=== PATIENT | female | born 1985 | race African-American/Black ===

== ENCOUNTER 2021-05-03 17:29 | Emergency (ER) | payer OTHER ==
[~2021-05-03] VITALS: Ht 162.6 cm; Wt 68.0 kg
[~2021-05-03 17:29] MED LIST: ALBUTEROL INHAL17 GM IH; AMITRIPTYLINE H10 M1 PO; ATIVAN0.5 MG; BENTYL20 MG PO; NOHOMEMEDICATIONS; NORCO 5-325 TA1 EACH PO; PHENADOZ25 MG RC; PHENERGAN 25 MG25 M1 PO; PHENERGAN 25 MG25 MG PO; PHENERGAN25 MG RE; PHENERGAN50 MG RC; PREDNISONE 2.52.5 M1 PO; PROTONIX40 M2; PROTONIX40 M2 PO; REMERON15 MG; SYMBICORT160 MCG/4. INH; VENTOLIN HFA 1818 GM INH; ZOFRAN ODT4 MG PO; ZOFRAN4 MG PO
[2021-05-03 18:08] LABS: URINE BILIRUBIN 1+ (Negative); URINE BLOOD TRACE (Negative); URINE CLARITY CLEAR; URINE COLOR YELLOW; URINE GLUCOSE-RANDOM* NEGATIVE (Negative); URINE KETONES TRACE (Negative); URINE LEUKOCYTES-REFLEX NEGATIVE (Negative); URINE NITRITE-REFLEX NEGATIVE (Negative); URINE PROTEIN (DIPSTICK) 1+ (Negative); URINE SPECIFIC GRAVITY >= 1.030 (1.005-1.035); URINE UROBILINOGEN 0.2 E.U./dl (0.2-1.0)
[2021-05-03 18:16] LABS: AMP/METHAMP Negative (Negative); BARBITURATES Negative (Negative); BENZODIAZEPINES Negative (Negative); COCAINE Negative (Negative); HYALINE CASTS 4-10 Moderate /LPF (None Seen); METHADONE Negative (Negative); OPIATES Negative (Negative); PCP Negative (Negative); SQUAMOUS >10 Many /LPF (0-3)
[2021-05-03 18:17] LABS: BACTERIA-REFLEX 1-9 Few /HPF (None Seen); CRYSTALS None Seen /LPF (None Seen); URINE RBC 3-10 Few /HPF (NONE SEEN); URINE WBC-REFLEX 6-15 Few /HPF (0-5)
[2021-05-03 18:37] LABS: ABSOLUTE NEUTROPHILS 7.7 thou/uL (1.4-8.2); BASOPHILS 0.5 % (0.0-2.0); EOSINOPHILS 0.5 % (0.0-3.0); HEMATOCRIT 46.7 % (37.0-47.0); HEMOGLOBIN 16.5 gm/dL (12.0-15.0); LYMPHOCYTES 15.1 % (24.0-44.0); MCH 34.8 pg (26.0-34.0); MCHC 35.3 g/dL (28.0-37.0); MCV 98.4 fL (80.0-100.0); MONOCYTES 9.3 % (1.0-8.0); POLYS 74.6 % (36.0-66.0); RBC 4.75 mil/uL (4.20-5.00); RDW 12.2 % (10.5-14.5); WBC 10.3 thou/uL (4.0-11.0)
[2021-05-03 18:42] LABS: CALCIUM 10.2 mg/dL (8.5-10.1); CREATININE 1.7 mg/dL (0.6-1.0); POTASSIUM 3.5 mmol/L (3.5-5.1)
[2021-05-03 18:49] LABS: ALBUMIN 5.3 g/dL (3.4-5.0); DIRECT BILIRUBIN 0.1 mg/dL (<0.1-0.2); TOTAL BILIRUBIN 0.7 mg/dL (0.2-1.0); TOTAL PROTEIN 9.3 g/dL (6.4-8.2)
[2021-05-03 19:08] LABS: LARGE PLATELETS OCCASIONAL; PLATELET COUNT 320 thou/uL (150-400)
[2021-05-03] MEDS ORDERED: ONDANSETRON HCL4 M2 PO (20:48)
[2021-05-03] MEDS ORDERED: CEPHALEXIN500 MG PO (20:48)
[2021-05-03] MEDS ORDERED: CARAFATE 1 GM TA1 G1 PO (20:48)
[2021-05-03] MEDS ORDERED: BENTYL 10 MG CA10 M1 PO (20:48)
[2021-05-04 07:47] VITALS: BP 132/70
== END 2021-05-03 20:54 | disposition home or self-care (01) ==
LOC: ER 17:29
PROVIDERS: Emergency Medicine; Nurse Practitioner
DX: N39.0 Urinary tract infection, site not specified (principal); R11.2 Nausea with vomiting, unspecified; R42 Dizziness and giddiness; R10.84 Generalized abdominal pain; J45.909 Unspecified asthma, uncomplicated; Z88.2 Allergy status to sulfonamides; Z88.1 Allergy status to other antibiotic agents; Z88.8 Allergy status to other drugs, medicaments and biological substances; Z90.49 Acquired absence of other specified parts of digestive tract; Z98.51 Tubal ligation status; Z79.899 Other long term (current) drug therapy